=== PATIENT | male | born 1955 | race Caucasian/White ===

== ENCOUNTER 2016-10-31 16:20 | Emergency (ER) | payer MEDICAID ==
[~2016-10-31] VITALS: Ht 172.7 cm; Wt 75.0 kg
[~2016-10-31 16:20] MED LIST: CARI250T7; PHEN100C12
[2016-10-31 17:39] LABS: BASOPHILS % 0.8 % (0.0-2.0); HEMATOCRIT. 31.9 % (42.0-52.0); HEMOGLOBIN. 10.1 g/dL (14.0-18.0); LYMPHOCYTES % 16.3 % (20.0-50.0); MEAN CORPUSCULAR HEMOGLOBIN 24.4 pg (28.0-32.0); MEAN CORPUSCULAR VOLUME 76.7 fL (80.0-94.0); MEAN PLATELET VOLUME 6.8 fl (7.4-10.4); MONOCYTES % 9.1 % (2.0-8.0); NEUTROPHILS % 70.8 % (40.0-76.0); PLATELET 339 x1000/uL (130-400); RED BLOOD CELL COUNT 4.15 mill/uL (4.7-6.1); RED CELL DISTRIBUTION WIDTH 15.8 % (11.6-14.6)
[2016-10-31 17:45] LABS: CHLORIDE 102 mEq/L (98-107)
[2016-10-31 17:47] LABS: PARTIAL THROMBOPLASTIN TIME 25.6 sec (24.0-34.0); PROTHROMBIN TIME 10.8 sec
[2016-10-31 17:55] LABS: CARBON DIOXIDE 29 mEq/L (21-32); ETHANOL BLOOD < 10 mg/dL; TROPONIN I < 0.02 ng/mL (0.00-0.04)
[2016-10-31 19:07] LABS: *AMPHETAMINES SCREEN URINE NEGATIVE (NEGATIVE); *BARBITURATES SCREEN URINE NEGATIVE (NEGATIVE); *BENZODIAZEPINES SCREEN URINE NEGATIVE (NEGATIVE); *COCAINE SCREEN URINE NEGATIVE (NEGATIVE); CANNABINOID URINE SCREEN PRESUMTIVE POSITIVE (NEGATIVE); METHADONE URINE SCREEN NEGATIVE (NEGATIVE); OPIATES URINE SCREEN NEGATIVE (NEGATIVE); PHENCYCLIDINE URINE SCREEN NEGATIVE (NEGATIVE)
[2016-10-31 20:34] VITALS: BP 132/84
== END 2016-10-31 22:28 | disposition home or self-care (01) ==
LOC: ER 16:40
DX: R00.2 Palpitations (principal); G40.909 Epilepsy, unspecified, not intractable, without status epilepticus; F12.10 Cannabis abuse, uncomplicated; F17.200 Nicotine dependence, unspecified, uncomplicated
CPT/HCPCS: 36415; 71010; 80048; 80185; 80305; 83880; 84443; 84484; 85025; 85610; 85730; 93005; 99285; G0482; Z7610

== ENCOUNTER 2016-12-26 10:35 | Inpatient (IN) | payer MEDICAID, OTHER ==
[~2016-12-26] VITALS: Ht 167.6 cm; Wt 68.0 kg
[2016-12-26] MEDS ORDERED: SODIUM CHLORIDE 0.9% 1,000 ML IV ONE (14:15)
[2016-12-26 14:47] LABS: INR 1.1; PROTHROMBIN TIME 11.2 sec (9.4-11.6)
[2016-12-26 14:49] LABS: BASOPHILS % 1.6 % (0.0-2.0); EOSINOPHILS % 5.4 % (0.0-5.0); HEMATOCRIT. 31.4 % (42.0-52.0); LYMPHOCYTES % 24.8 % (20.0-50.0); MEAN CORPUSCULAR HEMOGLOBIN 24.1 pg (28.0-32.0); MEAN CORPUSCULAR VOLUME 75.5 fL (80.0-94.0); MEAN PLATELET VOLUME 6.8 fl (7.4-10.4); MONOCYTES % 7.8 % (2.0-8.0); NEUTROPHILS % 60.4 % (40.0-76.0); PLATELET 359 x1000/uL (130-400); RED BLOOD CELL COUNT 4.17 mill/uL (4.7-6.1); RED CELL DISTRIBUTION WIDTH 17.2 % (11.6-14.6)
[2016-12-26 14:54] LABS: CARBON DIOXIDE 25 mEq/L (21-32); CHLORIDE 104 mEq/L (98-107); ETHANOL BLOOD < 10 mg/dL
[2016-12-26 16:30] LABS: CLARITY URINE CLEAR (CLEAR); COLOR URINE YELLOW (YELLOW); GLUCOSE URINE NEGATIVE (NEGATIVE); KETONES URINE NEGATIVE (NEGATIVE); LEUKOCYTE ESTERASE URINE NEGATIVE (NEGATIVE); NITRITE URINE NEGATIVE (NEGATIVE); OCCULT BLOOD URINE NEGATIVE (NEGATIVE); PROTEIN URINE NEGATIVE (NEGATIVE); SPECIFIC GRAVITY URINE 1.006 (1.005-1.030); UROBILINOGEN URINE 0.2 E.U./dL (0.2-1.0)
[2016-12-26 16:47] LABS: AMMONIA 21 uMol/L (<32)
[2016-12-26 16:56] LABS: *AMPHETAMINES SCREEN URINE NEGATIVE (NEGATIVE); *BARBITURATES SCREEN URINE NEGATIVE (NEGATIVE); *BENZODIAZEPINES SCREEN URINE NEGATIVE (NEGATIVE); *COCAINE SCREEN URINE NEGATIVE (NEGATIVE); CANNABINOID URINE SCREEN NEGATIVE (NEGATIVE); METHADONE URINE SCREEN NEGATIVE (NEGATIVE); OPIATES URINE SCREEN NEGATIVE (NEGATIVE); PHENCYCLIDINE URINE SCREEN NEGATIVE (NEGATIVE)
[2016-12-26] MEDS ORDERED: LEVETIRACETAM 500MG PREMIX 100 ML IV ONE (18:30)
[2016-12-26 21:05] VITALS: BP_SYST 151; BP_DIAS 80; BP_DIAS 87
[2016-12-26 22:30] VITALS: BP 151/87
[2016-12-26 22:54] VITALS: BP 151/87
[2016-12-26 23:30] VITALS: BP 134/80
[2016-12-27] MEDS ORDERED: CLONIDINE 0.1MG TABLET PO PRN (00:45)
[2016-12-27] MEDS ORDERED: DIPHENHYDRAMINE 50MG/ML VIAL IV PRN (00:45)
[2016-12-27] MEDS ORDERED: LEVETIRACETAM 500 MG in SODIUM CHLORIDE 0.9% 100 ML IV SCH ×2 (00:45→07:00)
[2016-12-27] MEDS ORDERED: ACETAMINOPHEN 325MG TABLET PO PRN ×2 (00:45)
[2016-12-27] MEDS ORDERED: MAGNESIUM/ALUMINUM HYDROXIDE/SIMETHICONE 30ML UDC PO PRN (00:45)
[2016-12-27] MEDS ORDERED: ONDANSETRON HCL 4MG/2ML VIAL IV PRN (00:45)
[2016-12-27] MEDS ORDERED: MVI, ADULT NO.1 10 ML, FOLIC ACID 1 MG, THIAMINE HCL 100 MG in SODIUM CHLORIDE 0.9% 1,0... IV SCH ×4 (00:45)
[2016-12-27] MEDS ORDERED: LORAZEPAM 2MG/ML CPJ IV PRN (00:45)
[2016-12-27] MEDS ORDERED: FOLIC ACID 1 MG, THIAMINE HCL 100 MG, MVI, ADULT NO.1 10 ML in DEXTROSE 5% WATER 1,000 ML IV NR ×4 (03:00)
[2016-12-27 04:00] VITALS: BP 137/73
[2016-12-27] MEDS: SODIUM CHLORIDE 0.9% INJ 3ML FLUSH IVF SCH ×3 (06:49→21:17)
[2016-12-27 07:29] VITALS: BP 138/84
[2016-12-27 11:22] VITALS: BP 145/98
[2016-12-27 15:43] VITALS: BP 136/89
[2016-12-27] MEDS: ENOXAPARIN 40MG/0.4ML SYR SUBCUT SCH (16:43)
[2016-12-27 20:00] VITALS: BP 153/97
[2016-12-27] MEDS: LEVETIRACETAM 500MG TABLET PO SCH (21:16)
[2016-12-28] VITALS: BP 131/75
[2016-12-28 06:16] LABS: BASOPHILS % 0.4 % (0.0-2.0); EOSINOPHILS % 2.3 % (0.0-5.0); HEMATOCRIT. 30.4 % (42.0-52.0); HEMOGLOBIN. 9.6 g/dL (14.0-18.0); LYMPHOCYTES % 14.4 % (20.0-50.0); MEAN CORPUSCULAR HEMOGLOBIN 23.6 pg (28.0-32.0); MEAN CORPUSCULAR VOLUME 74.8 fL (80.0-94.0); MEAN PLATELET VOLUME 7.3 fl (7.4-10.4); MONOCYTES % 7.1 % (2.0-8.0); NEUTROPHILS % 75.8 % (40.0-76.0); PLATELET 338 x1000/uL (130-400); RED BLOOD CELL COUNT 4.06 mill/uL (4.7-6.1); RED CELL DISTRIBUTION WIDTH 17.1 % (11.6-14.6)
[2016-12-28] MEDS: SODIUM CHLORIDE 0.9% INJ 3ML FLUSH IVF SCH ×3 (06:27→21:15)
[2016-12-28 06:40] LABS: CARBON DIOXIDE 26 mEq/L (21-32); CHLORIDE 104 mEq/L (98-107)
[2016-12-28 08:00] VITALS: BP 154/103
[2016-12-28] MEDS: LEVETIRACETAM 500MG TABLET PO SCH ×2 (09:06→21:15)
[2016-12-28] MEDS: ENOXAPARIN 40MG/0.4ML SYR SUBCUT SCH (09:07)
[2016-12-28 12:00] VITALS: BP 136/100
[2016-12-28 13:01] LABS: CLARITY URINE CLEAR (CLEAR); COLOR URINE YELLOW (YELLOW); GLUCOSE URINE NEGATIVE (NEGATIVE); KETONES URINE NEGATIVE (NEGATIVE); LEUKOCYTE ESTERASE URINE NEGATIVE (NEGATIVE); NITRITE URINE NEGATIVE (NEGATIVE); OCCULT BLOOD URINE 2+ (NEGATIVE); PROTEIN URINE 1+ (NEGATIVE); SPECIFIC GRAVITY URINE 1.024 (1.005-1.030); UROBILINOGEN URINE 0.2 E.U./dL (0.2-1.0)
[2016-12-28 16:00] VITALS: BP 99/59
[2016-12-28 20:00] VITALS: BP 133/88
[2016-12-29] VITALS: BP 143/96
[2016-12-29 04:00] VITALS: BP 122/77
[2016-12-29] MEDS: SODIUM CHLORIDE 0.9% INJ 3ML FLUSH IVF SCH ×3 (05:39→20:10)
[2016-12-29 08:00] VITALS: BP 113/78
[2016-12-29] MEDS: LEVETIRACETAM 500MG TABLET PO SCH ×2 (08:58→20:10)
[2016-12-29] MEDS: ENOXAPARIN 40MG/0.4ML SYR SUBCUT SCH (08:59)
[2016-12-29 12:00] VITALS: BP 100/75
[2016-12-29 16:00] VITALS: BP 114/82
[2016-12-29 19:06] LABS: BASOPHILS % 0.5 % (0.0-2.0); HEMATOCRIT. 32.4 % (42.0-52.0); HEMOGLOBIN. 10.3 g/dL (14.0-18.0); LYMPHOCYTES % 18.2 % (20.0-50.0); MEAN CORPUSCULAR HEMOGLOBIN 23.9 pg (28.0-32.0); MEAN CORPUSCULAR VOLUME 75.5 fL (80.0-94.0); MEAN PLATELET VOLUME 7.4 fl (7.4-10.4); NEUTROPHILS % 69.3 % (40.0-76.0); PLATELET 302 x1000/uL (130-400); RED BLOOD CELL COUNT 4.29 mill/uL (4.7-6.1)
[2016-12-29 20:00] VITALS: BP 134/90
[2016-12-30] VITALS: BP 122/82
[2016-12-30 04:00] VITALS: BP 106/82
[2016-12-30] MEDS: SODIUM CHLORIDE 0.9% INJ 3ML FLUSH IVF SCH (05:33)
[2016-12-30 08:00] VITALS: BP 112/68
[2016-12-30] MEDS: LEVETIRACETAM 500MG TABLET PO SCH (08:57)
[2016-12-30] MEDS: ENOXAPARIN 40MG/0.4ML SYR SUBCUT SCH (08:57)
[2016-12-30 12:00] VITALS: BP 110/72
[2016-12-30 13:59] VITALS: BP 110/72
[2016-12-30 16:00] VITALS: BP 132/81
== END 2016-12-30 16:40 | disposition home or self-care (01) | DRG 52 ==
LOC: ER 10:56 → 5WST 14:39 → ENRESERV 18:27
PROVIDERS: ADMIT Internal Medicine; ATTEND Internal Medicine
DX: G93.41 Metabolic encephalopathy (principal); E44.1 Mild protein-calorie malnutrition; G40.909 Epilepsy, unspecified, not intractable, without status epilepticus; E83.51 Hypocalcemia; H53.2 Diplopia; F10.20 Alcohol dependence, uncomplicated; Y90.9 Presence of alcohol in blood, level not specified; R50.9 Fever, unspecified; Z79.899 Other long term (current) drug therapy; Z86.73 Personal history of transient ischemic attack (TIA), and cerebral infarction without residual deficits; Z59.0 Homelessness
CPT/HCPCS: 36415; 51702; 70450; 71010; 80048; 80053; 80185; 80305; 80307; 80329; 81001; 81003; 82140; 83605; 83735; 85025; 85610; 87040; 87086; 93005; 96361; 96374; 97116; 97162; 99285; C1893; G0482; J1650; J1953; J3411; J3490; J7030; J7040; J7050; J7070; A4315

== ENCOUNTER 2017-02-16 12:36 | Emergency (ER) | payer MEDICAID ==
[~2017-02-16] VITALS: Ht 180.3 cm; Wt 78.0 kg
[2017-02-16 17:00] VITALS: BP 150/82
== END 2017-02-16 17:45 | disposition home or self-care (01) ==
LOC: ER 13:52
DX: K02.9 Dental caries, unspecified (principal); R56.9 Unspecified convulsions; F17.210 Nicotine dependence, cigarettes, uncomplicated
CPT/HCPCS: 99283

== ENCOUNTER 2017-06-02 19:44 | Emergency (ER) | payer MEDICAID ==
[~2017-06-02] VITALS: Ht 162.6 cm; Wt 73.0 kg
[2017-06-03] MEDS ORDERED: IBUPROFEN 600MG TABLET PO ONE (01:00)
[2017-06-03 01:07] VITALS: BP 153/87
== END 2017-06-03 01:35 | disposition home or self-care (01) ==
LOC: ER 21:15
DX: J02.8 Acute pharyngitis due to other specified organisms (principal); B97.89 Other viral agents as the cause of diseases classified elsewhere; K02.9 Dental caries, unspecified; F17.200 Nicotine dependence, unspecified, uncomplicated; F14.10 Cocaine abuse, uncomplicated
CPT/HCPCS: 99282

== ENCOUNTER 2018-04-13 13:34 | Emergency (ER) | payer MEDICAID ==
[~2018-04-13] VITALS: Ht 165.1 cm; Wt 60.0 kg
[2018-04-13] MEDS ORDERED: IBUPROFEN 600MG TABLET PO ONE (15:00)
[2018-04-13 15:53] VITALS: BP 156/98
== END 2018-04-13 16:00 | disposition home or self-care (01) ==
LOC: ER 14:45
DX: K04.7 Periapical abscess without sinus (principal); K02.9 Dental caries, unspecified; F17.200 Nicotine dependence, unspecified, uncomplicated
CPT/HCPCS: 99283

== ENCOUNTER 2019-11-02 17:14 | Emergency (ER) | payer MEDICAID ==
[~2019-11-02] VITALS: Ht 162.6 cm; Wt 70.0 kg
[2019-11-02] MEDS ORDERED: MORPHINE SULFATE 4 MG/ML CPJ (NOT FOR IM USE) IV STA (18:05)
[2019-11-02] MEDS ORDERED: ONDANSETRON HCL 4MG/2ML INJ IV STA (18:05)
[2019-11-02 18:55] LABS: BASOPHILS % 1.4 % (0.0-2.0); EOSINOPHILS % 5.9 % (0.0-5.0); HEMATOCRIT. 30.5 % (42.0-52.0); HEMOGLOBIN. 9.9 g/dL (14.0-18.0); LYMPHOCYTES % 24.7 % (20.0-50.0); MEAN CORPUSCULAR HEMOGLOBIN 24.2 pg (28.0-32.0); MEAN CORPUSCULAR VOLUME 74.5 fL (80.0-94.0); MEAN PLATELET VOLUME 7.2 fl (7.4-10.4); MONOCYTES % 10.5 % (2.0-8.0); NEUTROPHILS % 57.5 % (40.0-76.0); PLATELET 306 x1000/uL (130-400); RED BLOOD CELL COUNT 4.09 mill/uL (4.7-6.1); RED CELL DISTRIBUTION WIDTH 19.1 % (11.6-14.6)
[2019-11-02 19:23] LABS: CHLORIDE 109 mEq/L (98-107)
[2019-11-02 19:27] LABS: ETHANOL BLOOD < 10 mg/dL
[2019-11-03 06:03] LABS: CANNABINOID URINE SCREEN NEGATIVE (NEGATIVE); METHADONE URINE SCREEN NEGATIVE (NEGATIVE); OPIATES URINE SCREEN PRESUMTIVE POSITIVE (NEGATIVE); PHENCYCLIDINE URINE SCREEN NEGATIVE (NEGATIVE)
[2019-11-03 06:04] LABS: *AMPHETAMINES SCREEN URINE NEGATIVE (NEGATIVE); *BARBITURATES SCREEN URINE NEGATIVE (NEGATIVE); *BENZODIAZEPINES SCREEN URINE NEGATIVE (NEGATIVE)
[2019-11-03 06:07] LABS: *COCAINE SCREEN URINE NEGATIVE (NEGATIVE)
[2019-11-03 06:58] VITALS: BP 138/86
== END 2019-11-03 07:09 | disposition home or self-care (01) ==
LOC: ER 17:14
DX: R07.89 Other chest pain (principal); D64.9 Anemia, unspecified; Z59.0 Homelessness; Z87.891 Personal history of nicotine dependence
CPT/HCPCS: 36415; 70450; 71045; 71250; 80053; 80305; 80320; 85025; 96374; 96375; 99285; J2270; J2405; G0480

== ENCOUNTER 2020-02-10 11:45 | Emergency (ER) | payer MEDICAID ==
[~2020-02-10] VITALS: Ht 165.1 cm; Wt 66.0 kg
[2020-02-10] MEDS ORDERED: METHOCARBAMOL 500MG TABLET PO ONE (13:00)
[2020-02-10] MEDS ORDERED: KETOROLAC 30MG/ML VIAL IM ONE (13:00)
[2020-02-10 15:33] LABS: CLARITY URINE CLEAR (CLEAR); COLOR URINE YELLOW (YELLOW); KETONES URINE NEGATIVE (NEGATIVE); LEUKOCYTE ESTERASE URINE TRACE (NEGATIVE); NITRITE URINE NEGATIVE (NEGATIVE); OCCULT BLOOD URINE NEGATIVE (NEGATIVE); PH URINE 5.5 (4.5-8.0); PROTEIN URINE NEGATIVE (NEGATIVE); SPECIFIC GRAVITY URINE 1.022 (1.005-1.030); UROBILINOGEN URINE 0.2 E.U./dL (0.2-1.0)
[2020-02-10 16:35] VITALS: BP 132/72
== END 2020-02-10 17:59 | disposition home or self-care (01) ==
LOC: ER 11:45
DX: M54.9 Dorsalgia, unspecified (principal); R56.9 Unspecified convulsions
CPT/HCPCS: 81003; 96372; 99283; J1885